=== PATIENT | female | born 1955 | race Caucasian/White ===

== ENCOUNTER 2021-12-22 10:48 | Outpatient (CLI) | payer MEDICARE | END 2021-12-22 10:49 | disposition home or self-care (01) | LOC: BURRAD 10:48 | PROVIDERS: ATTEND Family Medicine | DX: M67.911 Unspecified disorder of synovium and tendon, right shoulder (principal) ==

== ENCOUNTER 2022-05-10 15:42 | Emergency (ER) | payer MEDICARE ==
[2022-05-10] MEDS ORDERED: Ketorolac Tromethamine 30 MG/ML VIAL ONE (16:04)
[2022-05-10] MEDS ORDERED: HYDROcodone/Acetaminophen 5/325 mg Tablet ONE (16:04)
== END 2022-05-10 17:15 | disposition home or self-care (01) ==
LOC: BURERS 15:42
DX: S83.91XA Sprain of unspecified site of right knee, initial encounter (principal); X50.1XXA Overexertion from prolonged static or awkward postures, initial encounter; E78.00 Pure hypercholesterolemia, unspecified; Z79.899 Other long term (current) drug therapy
CPT/HCPCS: 96372; J1885